=== PATIENT | male | born 1985 | race Caucasian/White ===

== ENCOUNTER 2017-04-03 22:00 | Emergency (ER) | payer MEDICAID, OTHER ==
[~2017-04-03 22:00] MED LIST: BUSP15TA3 PO; FLUO20CA25 PO; QUET25TA73 PO
[2017-04-03 22:04] VITALS: PULSE 117; RESP 18; O2SAT 96
--- NOTE | 2017-04-03 22:04 | ED.REPORT ---
HPI-General Illness Date of Service Apr 03, 2017 ED Provider: Marlena Haley MD Patient is a 32 year old male who presents to the ED via EMS for medical clearance to be fit for assisted. Per EMS, the patient was pulled over by the police for a DUI and instantly became combative with the police. The police were able to pin the patient to the ground and hand cuff him. While he was down , he began hitting his head against the ground and continued to fight with the police. EMS was called to help with the situation and once they arrived on scene the patient received 300mg of Ketamine. As soon as the pressure was lifted off the patient, he began resisting again so EMS gave 2.5mg of Versed. Nursing Notes Stated Complaint: UNCOOPERATIVE Chief Complaint: Substance Abuse Nursing Notes Reviewed: Yes Allergies: Coded Allergies: No Known Allergies (Unverified , 04/03/17) Scheduled Buspirone (Buspirone) 15 Mg Tablet 10 MG PO BID Fluoxetine (Fluoxetine) 20 Mg Capsule 20 MG PO DAILY Quetiapine Fumarate (Quetiapine Fumarate) 25 Mg Tablet 50 MG PO BID General Time Seen by MD: 22:03 Chief Complaint Medical clearance Hx Obtained From: EMS Unable to Obtain Hx: Patient condition, Uncooperative, Intoxicated Arrived By: Ambulance Sudden in Onset?: Yes Onset Occurred: Just prior to arrival Context of Onset: EtOH use Recent Healthcare: No recent doctor visit, No recent hospitalization Past Medical History Past Medical History None reported Past Surgical History None reported Social History ETOH abuse Ambulatory Status Independent Review of Systems Unable to Obtain ROS Patient condition, Uncooperative, Intoxicated Physical Exam Vital Signs Vital Signs Date Time Temp Pulse Resp B/P Pulse Ox O2 Delivery O2 Flow Rate FiO2 04/04/17 00:49 36.8 85 18 130/68 98 Room Air 04/03/17 23:15 106 18 139/92 95 Room Air 04/03/17 22:04 37.8 117 18 96 Room Air Initial VS: Reviewed Alertness: Positive: Sedated Behavior: Positive: Uncooperative patient arrives in 4 point restraints no evidence of other trauma Head / Eyes: Normocephalic, PERRL, EOMI small hematoma to forehead Respiratory / Chest: Atraumatic, Breath sounds NL, Breath sounds = bilat, No respiratory distress no signs of bruising Cardiovascular: Regular rhythm, Heart sounds NL Heart Rate / Rhythm: Positive: Tachycardia Abdomen: Atraumatic, Soft, Non-tender LOWER EXTREMITIES: slight erythema to bilateral knees Skin: Atraumatic, Color NL, No rash, Warm, Dry no evidence of bruising Unable to Evaluate: Positive: Uncooperative Interpretation & Diagnostics Lab Results Interpretation Result Diagram: 04/03/17 2216 Test 04/03/17 22:16 Sodium Level 143mEq/L (134-144) Potassium Level 4.2mEq/L (3.5-5.2) Chloride Level 102mEq/L (97-108) Carbon Dioxide Level 19mmol/L (18-29) Blood Urea Nitrogen 14mg/dL (6-20) Creatinine 1.21mg/dL (0.76-1.27) Estimat Glomerular Filtration Rate 74mL/min (>59) Glucose Level 84mg/dL (60-99) Calcium Level 8.5mg/dL (8.5-10.1) Alcohols 281mg/dL (0-10) CT Head Interpretation Impression: No CT evidence of hemorrhage, mass or acute infarct. at 0019 Interpretation / Wet Read by: Interpret - Radiologist Re-Eval/Medical Decision Med Decision/Clinical Course Patient was brought in by police, he was fighting them and needed to be sedated to be brought into the hospital. According to police there was no trauma other than self-inflicted, the patient was painting his head against the pavement. He was observed here and upon being more awake he was belligerent with his sitter and myself. Police were called to escort the patient out. The patient had a head CT given his alcohol use and inability to have a good neurologic exam. CT was negative. There are no other osseous trauma. Time of Eval: 22:05 Re-Evaluation/Progress Note: 4 point restraints were kept on the patient as he was transferred over by EMS. Time of Eval: 00:24 Re-Evaluation/Progress Note: Police are called. Patient is being belligerent Time of Eval: 00:46 Re-Evaluation/Progress Note: Discussed plan for discharge. Police are going to take him to his father's. Patient understands and agrees to plan. All questions were addressed. Counseled Regarding: Diagnosis, Lab results, Need for follow-up, When/why to return to ED Discharge & Departure Primary Impression: Alcohol abuse Disposition: Home Discharge Condition All VS Reviewed: Yes Condition: Stable Patient Instructions: Abuse of Alcohol (ED) Additional Instructions: Your head CT was normal. You did however come to the ED with a blood alcohol level of .281 You should never drink alcohol and drive. This is against the law and is a recipe for disaster. Follow up with your primary care physician next week or Alcoholics Anonymous. Return to the emergency department if you develop any new or concerning symptoms. Referrals: [facility] Alcoholics Anonymous (AA) [employer] [facility] Portions of this note were transcribed by Kristi Daugherty. I, Dr. Haley personally performed the history, physical exam and medical decision-making; I reviewed and confirmed the accuracy of the information in the transcribed note. Signed by: Vandana Bejarano, 04/04/17 and 0045 copies to: [facility] ; Alcoholics Anonymous (AA) Marlena Haley MD Apr 03, 2017 22:04 Jody Daugherty Apr 03, 2017 22:15
[2017-04-03] MEDS ORDERED: 0.9% Sodium Chloride 1,000 ML IV ONE (22:10)
[2017-04-03] MEDS ORDERED: Ketamine 10 mg/mL 20 mL Inj IV ONE (23:00)
[2017-04-03 23:15] VITALS: BP 139/92; PULSE 106; RESP 18; O2SAT 95
[2017-04-04 00:49] VITALS: BP 130/68; PULSE 85; RESP 18; O2SAT 98
--- NOTE | 2017-04-04 10:31 | DRSVH ---
PROCEDURE: CT BRAIN WITHOUT CONTRAST ([id number]) INDICATIONS: trauma TECHNIQUE: Noncontrast 4.5 mm thick angled axial sections acquired from the foramen magnum to the vertex, with c oronal reformats. COMPARISON: None. FINDINGS: Image quality: Excellent. CSF spaces: Basal cisterns are patent. No extra-axial fluid collections. Ventricles are normal in size and shape. Brain: No midline shift. No intracranial masses or hemorrhage. Franco-white matter interface is norm al. Skull and face: Calvarium and visualized facial bones are intact, without suspicious lesions. Sinuses: Visualized sinuses and mastoids are clear. IMPRESSION: 1. No acute intracranial process. Dictated by: Chitra Mclaughlin M.D. on 04/04/2017 at 10:27 Approved by: Cihtra Mclaughlin M.D. on 04/04/2017 at 10:28
== END 2017-04-04 00:53 | disposition home or self-care (01) ==
LOC: SED 22:00
DX: F10.120 Alcohol abuse with intoxication, uncomplicated (principal); Z78.1 Physical restraint status
CPT/HCPCS: 36415; 70450; 80048; 96374; 99284; G0480; J7030